=== PATIENT | female | born 1985 | race Two or more races ===

== ENCOUNTER 2024-05-04 09:58 | Emergency (ER) | payer MEDICAID, SELFPAY ==
[2024-05-04] VITALS (15 sets, daily range): BP systolic 115–155; BP diastolic 60–92; PULSE 91–108; RESP 16–26; TEMP 36.7–37.6; O2SAT 92–100; BMI 55.3
--- NOTE | 2024-05-04 10:32 | XR_ITS ---
EXAMINATION: XR chest 2V ORDERING PROVIDER: MELODIE Willson HISTORY: Chest Pain TECHNIQUE: Single portable AP radiograph of the chest. COMPARISON: 10/02/2023, chest radiographs. FINDINGS: Moderate cardiomegaly. Increased interstitial markings. No pneumothorax or pleural effusion. Similar atelectasis versus scarring left lateral upper lobe. Increased airspace opacities left lower lobe. Bones unchanged. IMPRESSION: Congestive heart failure pattern with increased interstitial markings in the left lung base which may represent superimposed infection in the proper clinical setting.
--- NOTE | 2024-05-04 10:32 | EKG_ITS ---
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
--- NOTE | 2024-05-04 10:32 | PD.EDRME ---
Rapid Medical Screening Exam RME Arrival date/time: 05/04/24 09:58 39-year-old female with a history of CHF presents to the emergency room with a chief complaint of shortness of breath, bilateral lower extremity swelling, chills, abdominal pain and distention x 2 days. I have greeted and performed a focused initial assessment of this patient. A comprehensive ED assessment and evaluation of the patient, analysis of all test results, and completion of the medical decision making process will be conducted by additional ED providers. Chief Complaint: Flu Like Symptoms Time Seen by Provider: 05/04/24 10:05 Vital signs reviewed by provider: Yes
--- NOTE | 2024-05-04 10:33 | XR_ITS ---
EXAMINATION: CT abdomen pelvis wo con ORDERING PROVIDER: MELODIE Willson HISTORY: abdominal pain TECHNIQUE: Without intravenous or oral contrast, CT was used in the volumetric, helical imaging acquisition of the abdomen and pelvis with 2-D and 3-D reformats generated on a separate workstation and submitted for interpretation. Institutional dose reducing protocols were utilized. Evaluation of hollow viscus and solid viscera is limited secondary to lack of intravenous and oral contrast. RADIATION DOSE: DLP 1562 mGy-cm COMPARISON: 11/12/2023, renal ultrasound. FINDINGS: LIVER: Nodular morphology. Diffuse decreased density. Midclavicular craniocaudad length 18.4 cm. BILIARY: Post cystectomy. PANCREAS: Fatty atrophy. SPLEEN: 16.8 cm in length. ADRENAL GLANDS: Unremarkable. KIDNEYS: Mild bilateral perinephric fat stranding. No hydronephrosis. No obstructive nephrolithiasis. URETERS: Unremarkable. BLADDER: Unremarkable. CT provides limited evaluation of the urinary bladder. HOLLOW VISCUS: Scattered colonic diverticula without surrounding inflammatory changes. Appendix nondilated. Bowel is not abnormally dilated. VASCULATURE: Two right renal veins. Some mildly prominent serpiginous vessels about the lateral liver, may represent developing varices. Trace ascites. Mild cardiomegaly. PELVIS: Small amount of free fluid. LYMPH NODES: Scattered prominent inguinal, periportal, and retroperitoneal lymph nodes, not pathologically enlarged imaging criteria. LUNG BASES: 3 mm nodular opacity about the minor fissure, probably in a intrafissural lymph node. Mild increase in interstitial markings. Mild dependent atelectasis. BONES: Mild to moderate bony degenerative changes, including moderate L4-L5 disc height loss and facet arthrosis. ABDOMINAL WALL: Anasarca. IMPRESSION: 1. Cirrhotic liver with sequelae of portal hypertension. 2. Volume overload versus third spacing.
[2024-05-04 11:10] LABS: Basophils % (Auto) 0 % (0-2.5); Eosinophils # (Auto) 0.2 Thou/mm3 (0.0-0.5); Eosinophils % (Auto) 3 % (0-10); Hematocrit 23.9 % (36.0-46.0); Immature Granulocytes % (Auto) 0 % (0-0); Immature Granulocytes Auto 0.03 Thou/mm3 (0.00-0.00); Lymphocytes % (Auto) 14 % (10-50); Mean Corpuscular Hemoglobin 22.2 pg (25.0-35.0); Mean Corpuscular Volume 79 fL (80-100); Monocytes # (Auto) 0.5 Thou/mm3 (0.0-0.8); Monocytes % (Auto) 7 % (0-12); Neutrophils # (Auto) 5.2 Thou/mm3 (1.8-7.7); Neutrophils % (Auto) 76 % (37-80); Nucleated Red Blood Cell % 0 /100 WBC (0); Platelet Count 86 Thou/mm3 (140-440); RDW Standard Deviation 54.4 fL (36.4-46.3); Red Blood Count 3.02 Miln/mm3 (4.00-5.20); White Blood Count 6.9 Thou/mm3 (3.6-11.0)
[2024-05-04 11:12] LABS: Hemoglobin 6.7 g/dL (12.0-16.0)
[2024-05-04 11:24] LABS: Alanine Aminotransferase 19 U/L (10-49); Albumin, Serum 3.8 gm/dL (3.5-5.0); Albumin/Globulin Ratio 1.4 (1.2-2.2); Alkaline Phosphatase 126 U/L (46-116); Anion Gap 2 (7-16); Aspartate Amino Transferase < 10 U/L (0-34); B-Type Natriuretic Peptide 74 pg/mL (0-100); BUN/Creatinine Ratio 13 Ratio (12-20); Bilirubin,Total 1.7 mg/dL (0.3-1.2); Blood Urea Nitrogen 8 mg/dL (9-23); Calcium 8.8 mg/dL (8.3-10.6); Carbon Dioxide 27.3 mMol/L (20.0-31.0); Chloride 109 mMol/L (98-107); Creatinine (Component) 0.6 mg/dL (0.6-1.3); Estimated Creatinine Clearance 179.6 mL/min (>60); Globulin 2.8 gm/dL (2.3-3.5); Glucose 118 mg/dL (74-106); LDH (Lactate Dehydrogenase) 234 U/L (120-246); Magnesium 1.8 mg/dL (1.6-2.6); Osmolality,Calculated 274 (275-295); Potassium 3.7 mMol/L (3.4-5.1); Sodium 138 mMol/L (136-145); Total Protein 6.6 gm/dL (5.7-8.2); Troponin I < 0.020 ng/mL (0.0-0.045); eGFR > 60 See Note
[2024-05-04 11:35] LABS: INR 1.1 (0.9-1.3); Partial Thromboplastin Time 24.9 Seconds (22.0-36.0); Prothrombin Time 12.3 Seconds (9.0-12.2)
--- NOTE | 2024-05-04 11:48 | PD.EDADULT ---
ED General RME/HPI General Chief complaint: Flu Like Symptoms Stated complaint: SEVERE HOARSENESS, CHILLS, BODY ACHES Time Seen by Provider: 05/04/24 10:05 Arrival date/time: 05/04/24 09:58 CC: Abdominal pain HPI every time she drinks alcohol the patient experience abdominal pain this has been going on for a long time . Patient admits to drinking alcohol to eat for years . Patient drinks 1 to 2 pints of vodka a day. Patient denies diarrhea black stool bloody stool nausea vomiting or diarrhea. Patient continues to have heavy menses and states that she is anemic. Currently the abdominal pain is a 2-3 on a 10 scale RME / HPI RME / HPI narrative: 05/04/24 09:58 39-year-old female with a history of CHF presents to the emergency room with a chief complaint of shortness of breath, bilateral lower extremity swelling, chills, abdominal pain and distention x 2 days. I have greeted and performed a focused initial assessment of this patient. A comprehensive ED assessment and evaluation of the patient, analysis of all test results, and completion of the medical decision making process will be conducted by additional ED providers. Related Data Previous Rx's ?Medication ?Instructions ?Recorded amoxicillin 875 mg-potassium 1 tab PO BID #20 tabs 12/18/21 clavulanate 125 mg tablet benzonatate 100 mg capsule 100 mg PO TID PRN cough #60 caps 12/18/21 budesonide 180 mcg/actuation 1 inh inhalation BID #1 ea 12/18/21 breath activated powder inhaler Allergies Allergy/AdvReac Type Severity Reaction Status Date / Time No Known Allergies Allergy Verified 05/04/24 10:04 Review of Systems Review of Systems Narrative Review of Systems: GEN: No fever, no chills, no weight loss EYES: No discharge, no visual changes, no pain HEENT: No ear pain, no congestion, no sore throat PULM: No shortness of breath, no cough, no congestion CV: No chest pain, no dyspnea on exertion, no palpitations GI: No nausea, no vomiting, no diarrhea, + pain, no constipation : No frequency, no urgency, no dysuria MUSC/SKEL: No joint pain, no back pain SKIN: No rash PSYCH: No hallucinations, no depression HEME/LYMPH: No easy bleeding or bruising tendencies NEURO: No weakness, no headache Past Medical History Past Medical History CARDIAC: Positive Angina, Edema and Hypertension; Negative Cardiac Disorders, Hypercholesterolemia, Aneurysm or Congestive Heart Failure RESPIRATORY: Negative Chronic Obstructive Pulmonary Disease (COPD) GASTROINTESTINAL: Positive Gall Bladder Disease and Obesity; Negative Gastrointestinal Disorders or Hepatitis GENITOURINARY: Negative Renal Disease REPRODUCTIVE: Negative Breast Cancer ENDOCRINE: Negative Diabetes Mellitus Type 1 or Diabetes Mellitus Type 2 HEMATOLOGIC: Positive Anemia PSYCHO/SOCIAL: Positive Depression and Anxiety OTHER HISTORY: Positive Chicken Pox; Negative Anesthesia Reactions, MRSA, Human Immunodeficiency Virus (HIV), Measles, Mumps, Rubella ([place] Measles), Pertussis, Clostridium Difficile or Breast Cancer Family History FAMILY HISTORY: Positive Family Cancer Social History SMOKING STATUS: Current every day smoker ED Exam Narrative Physical exam: [General: Morbidly obese not in any acute distress Head normocephalic HEENT: Within acceptable limits Neck is supple nontender Chest equal chest rise nontender to palpation Respiratory: Clear to auscultation no wheezes crackles or rubs CV: Rate rhythm is regular no murmurs rubs or clicks Abdomen is grossly distended secondary to body habitus soft nontender no masses positive bowel sounds all 4 quadrants Back: No CVA tenderness no spinous process tenderness from cervical spine thoracic and lumbar spine Skin: Intact no petechiae rash induration ulceration or crepitus Extremities: Moving all extremity against resistance cap refill less than 2 seconds neurosensory intact. Bilateral lower extremity edema Neuro: Awake alert oriented x3 Glascow coma 15 no focal deficits] Course Quality Measures none Orders Category Date Time Status EKG (ED ONLY) *Do not use* NOW Care 05/04/24 10:32 Completed Melissa [Urinary Catheter] QS Care 05/04/24 17:22 Completed Insert IV NOW Care 05/04/24 11:57 Completed Transfuse,blood/blood products NOW Care 05/04/24 11:[address] abdomen pelvis wo con Stat Exams 05/04/24 10:33 Completed EKG (ED Only) Stat Exams 05/04/24 10:32 Draft XR chest 2V Stat Exams 05/04/24 10:32 Completed Alcohol, Blood Medical Stat Lab 05/04/24 11:55 Completed B-Type Natriuretic Peptide Stat Lab 05/04/24 10:57 Completed CBC Stat Lab 05/04/24 10:57 Completed Comprehensive Metabolic Panel Stat Lab 05/04/24 10:57 Completed Drug Screen,Urine Stat Lab 05/04/24 17:41 Completed HCG Qualitative,Urine Stat Lab 05/04/24 17:41 Completed HCG,Qualitative Serum Stat Lab 05/04/24 11:55 Completed LDH (Lactate Dehydrogenase) Stat Lab 05/04/24 10:57 Completed Lipase Stat Lab 05/04/24 11:55 Completed Magnesium Stat Lab 05/04/24 10:57 Completed Partial Thromboplastin Time Stat Lab 05/04/24 10:57 Completed Path Review Blood Smear Stat Lab 05/04/24 10:57 Completed Prothrombin Time with INR Stat Lab 05/04/24 10:57 Completed Troponin I Stat Lab 05/04/24 10:57 Completed Type and Screen Stat Lab 05/04/24 11:55 Completed Urinalysis Stat Lab 05/04/24 17:41 Completed prbc [Red Blood Cells] Stat Lab 05/04/24 11:55 Completed Folic Acid Inj Med 05/04/24 12:02 Discontinued 1 mg IVP X1 ONE Furosemide [Lasix Inj] Med 05/04/24 16:28 Discontinued 20 mg IVP X1 ONE Thiamine [Vitamin B-1] Med 05/04/24 12:02 Discontinued 100 mg PO X1 ONE Vital Signs Vital signs: Vital Signs Temperature 99.0 F 05/04/24 10:32 Pulse Rate 108 H 05/04/24 10:32 Respiratory Rate 26 H 05/04/24 10:32 Blood Pressure 154/72 H 05/04/24 10:32 Pulse Oximetry (%) 95 05/04/24 10:32 Oxygen Delivery Method Room Air 05/04/24 10:32 [facility] Patient data External records reviewed:: [facility] previous records Clinical information provided by:: patient Social determinants that could affect healthcare access:: none Patient has the following chronic illnesses:: Obesity alcoholism How is presenting disease/condition affected by chronic disease/condition?: exacerbated by Evaluation data The following diagnostics were reviewed and interpreted by me:: lab results and radiology exam(s) Lab and/or radiology exams considered but not ordered:: CBC shows no leukocytosis anemia of 6.7 and 23.9 respectively with a platelet count of 86 Coags show PT of 12.3 no other gross abnormalities CMP shows sodium 138 potassium 3.7 chloride of 109 carbon oxide 27.3 gap of 2 BUN of 8 creatinine of 0.6. Glucose of 118 Total bilirubin of 1.7 AST of less than 10 ALT of 19 alk phos of 126 LDH of 234 Troponin of is within acceptable limits BMP is within acceptable limits. EKG performed at 1036 is a ventricular of 95. Of 133 QRS of 78 QTc of 385 is normal sinus rhythm. Interpretation Summary: Anemia abdominal pain alcoholism Medications Medications considered but not ordered:: None Medication administrations:: Medication Administration History Discontinued Medications Folic Acid (Folic Acid Inj 1 Mg/0.2 Ml) 1 mg IVP X1 ONE Stop: 05/04/24 12:03 Last Admin: 05/04/24 12:15 Dose: 1 mg Documented By: BD Furosemide (Furosemide Inj 10 Mg/Ml Vial 2 Ml) 20 mg IVP X1 ONE Stop: 05/04/24 16:29 Last Admin: 05/04/24 16:32 Dose: 20 mg Documented By: BD Thiamine HCl (Thiamine 100 Mg Tablet) 100 mg PO X1 ONE Stop: 05/04/24 12:03 Last Admin: 05/04/24 12:13 Dose: 100 mg Documented By: BD None Consultations Consultation(s) initiated? (list below): No Diagnosis Differential Diagnosis ED Complaint MDM: Anemia abdominal pain alcoholism Most likely diagnosis given after review of the tests above:: Anemia abdominal pain alcoholism Admission Indicated Admission indicated?: not indicated Explain why admission is indicated or not indicated:: Stable for outpatient follow-up Admission Request Was there a request for admission?: No Disposition Plan Disposition Plan: Discharge Discharge Attestation Discharge Attestation: The patient and all family members were given an opportunity to ask questions and understood the discharge instructions. Discharge instructions specifically effects, indications for sooner follow up or return to the emergency department, and the expected course of current diagnosis. Patient condition: Stable Medical Decision Making Differential Diagnosis Differential Diagnosis: Anemia abdominal pain alcoholism Lab Data 05/04/24 10:57 05/04/24 10:57 Labs: Lab Results 05/04/24 05/04/24 05/04/24 Range/Units 10:57 11:55 17:41 WBC 6.9 (3.6-11.0) Thou/mm3 RBC 3.02 L (4.00-5.20) Miln/mm3 Hgb 6.7 L* (12.0-16.0) g/dL Hct 23.9 L (36.0-46.0) % MCV 79 L (80-100) fL MCH 22.2 L (25.0-35.0) pg MCHC 28.0 L (31.0-37.0) g/dl RDW Std Deviation 54.4 H (36.4-46.3) fL Plt Count 86 L (140-440) Thou/mm3 Neut % (Auto) 76 (37-80) % Lymph % (Auto) 14 (10-50) % [place] % (Auto) 7 (0-12) % Eos % (Auto) 3 (0-10) % Baso % (Auto) 0 (0-2.5) % Neut # (Auto) 5.2 (1.8-7.7) Thou/mm3 Lymph # (Auto) 1.0 (1.0-4.8) Thou/mm3 [place] # (Auto) 0.5 (0.0-0.8) Thou/mm3 Eos # (Auto) 0.2 (0.0-0.5) Thou/mm3 Baso # (Auto) 0.0 (0.0-0.2) Thou/mm3 Immature Gran # (Auto) 0.03 H (0.00-0.00) Thou/mm3 Absolute Nucleated RBC 0.00 (0.00-0.00) Thou/mm3 Immature Gran % 0 (0-0) % Nucleated RBC % 0 (0) /100 WBC Smear Path Review Sent to Pathologist PT 12.3 H (9.0-12.2) Seconds INR 1.1 (0.9-1.3) APTT 24.9 (22.0-36.0) Seconds Sodium 138 (136-145) mMol/L Potassium 3.7 (3.4-5.1) mMol/L Chloride 109 H (98-107) mMol/L Carbon Dioxide 27.3 (20.0-31.0) mMol/L Anion Gap 2 L (7-16) BUN 8 L (9-23) mg/dL Creatinine 0.6 (0.6-1.3) mg/dL Estim Creat Clear Calc 179.6 (>60) mL/min eGFR > 60 (60 - ) See Note BUN/Creatinine Ratio 13 (12-20) Ratio Glucose 118 H (74-106) mg/dL Calculated Osmolality 274 L (275-295) Calcium 8.8 (8.3-10.6) mg/dL Corrected Calcium 9.0 (8.5-10.1) mg/dL Magnesium 1.8 (1.6-2.6) mg/dL Total Bilirubin 1.7 H (0.3-1.2) mg/dL AST < 10 (0-34) U/L ALT 19 (10-49) U/L Alkaline Phosphatase 126 H (46-116) U/L Lactate Dehydrogenase 234 (120-246) U/L Troponin I < 0.020 (0.0-0.045) ng/mL B-Natriuretic Peptide 74 (0-100) pg/mL Total Protein 6.6 (5.7-8.2) gm/dL Albumin 3.8 (3.5-5.0) gm/dL Globulin 2.8 (2.3-3.5) gm/dL Albumin/Globulin Ratio 1.4 (1.2-2.2) Lipase 30 (12-53) U/L HCG, Qual Negative Ur Collection Type Clean Catch Urine Color Colorless A (Lt Yel-Yel) Urine Clarity Clear (Clear/Hazy) Urine pH 6.0 (5.0-7.0) Ur Specific [place] 1.008 (1.001-1.035) Urine Protein Negative (Neg - Trace) Urine Glucose (UA) Negative (Negative) Urine Ketones Negative (Negative) Urine Blood Negative (Negative) Urine Nitrite Negative (Negative) Urine Bilirubin Negative (Negative) Urine Urobilinogen (Auto) Negative (0.0-1.0) mg/dL Ur Leukocyte Esterase Negative (Negative) Urine RBC < 1 (0-3) /hpf Urine WBC < 1 (0-5) /hpf Ur Squamous Epith Cells 0 (0-5) /hpf Urine Bacteria None (None) Urine HCG, Qual Negative Urine Opiates Screen Negative (Negative) Urine Fentanyl Screen Negative (Negative) Ur Barbiturates Screen Negative (Negative) U Amphetamin/Meth Scrn Positive A (Negative) U Benzodiazepines Scrn Negative (Negative) U Cocaine Metab Screen Negative (Negative) U Marijuana (THC) Screen Negative (Negative) Ethyl Alcohol < 3.0 (0-10.0) mg/dL Blood Type O Positive Antibody Screen NEGATIVE Crossmatch See Detail Blood Bank Wristband ID Yes Discharge Plan Plan Patient Disposition: HOME (Self Care) Patient condition on transfer: Stable Prescriptions/Referrals Prescriptions/Med Rec: No Action amoxicillin-pot clavulanate 875-125 mg tablet 1 tab PO BID Qty: 20 0RF benzonatate 100 mg capsule 100 mg PO TID PRN (Reason: cough) Qty: 60 0RF budesonide 180 mcg/actuation aerosol powdr breath activated 1 inh inhalation BID Qty: 1 0RF Referrals: Koehler (ARIACHL),Sherin, GASOLINE LOCOMOTIVE CRANE OPERATOR [Primary Care Provider] - In 1 week Problem List Clinical Impression: Anemia, Abdominal pain, Morbid obesity Patient/Caregiver Discharge Instructions Education Materials: Abdominal Pain, Understanding Body Mass Index (BMI), Weight Manage Take Off Keep Off Print Language: Upper Sorbian Stand Alone Forms: Adriana Award Info., Work/School Release, Patient Portal Info Letter PA/GASOLINE LOCOMOTIVE CRANE OPERATOR Supervising Physician PA/GASOLINE LOCOMOTIVE CRANE OPERATOR Supervising Physician: Jake Zimmerman ENP
[2024-05-04 12:01] LABS: Path Review Blood Smear Sent to Pathologist
[2024-05-04] MEDS: THIAMINE 100 MG TABLET PO (12:13)
[2024-05-04] MEDS: FOLIC ACID INJ 1 MG/0.2 ML IVP (12:15)
[2024-05-04 12:28] LABS: Alcohol, Blood Medical < 3.0 mg/dL (0-10.0); Lipase 30 U/L (12-53)
--- NOTE | 2024-05-04 12:38 | PC.NURSE ---
PT CAME FROM LOBBY HERE FOR ABD PAIN, PT HAS A HX OF ALCOHOL ABUSE, STATES LAST TIME SHE DRANK WAS LAST NIGHT PT NEEDS BLOOD TRANSFUSION, DATA RECOVERY PLANNER ENRIQUEZ AWARE OF PT ALCOHOL USE AND LAST TIME THAT SHE DRANK. PT IS IN ROOM WITH SISTER AT BEDSIDE.
[2024-05-04 13:51] LABS: HCG,Qualitative Serum Negative
[2024-05-04] MEDS: FUROSEMIDE INJ 10 MG/ML VIAL 2 ML 20 MG IVP (16:32)
[2024-05-04 18:02] LABS: Collection Type, Urine Clean Catch; Squamous Epithelial Cell,Urine 0 /hpf (0-5)
[2024-05-04 18:07] LABS: Bilirubin,Urine Negative (Negative); Blood,Urine Negative (Negative); Clarity,Urine Clear (Clear/Hazy); Color,Urine Colorless (Lt Yel-Yel); Glucose, Urine Negative (Negative); Ketones,Urine Negative (Negative); Leukocyte Esterase,Urine Negative (Negative); Nitrite,Urine Negative (Negative); Protein,Urine Negative (Neg - Trace); RBC,Urine < 1 /hpf (0-3); Specific Gravity,Urine 1.008 (1.001-1.035); Urobilinogen,Urine Negative mg/dL (0.0-1.0); WBC,Urine < 1 /hpf (0-5)
[2024-05-04 18:12] LABS: HCG Qualitative,Urine Negative
[2024-05-04 18:31] LABS: Amphetamine/Methamp Scrn,U Positive (Negative); Barbiturate Screen,Urine Negative (Negative); Benzodiazepines Screen,Urine Negative (Negative); Benzoylecgonine Screen, Ur Negative (Negative); Fentanyl Screen,Urine Negative (Negative); Opiate Screen,Urine Negative (Negative); THC Screen,Urine Negative (Negative)
== END 2024-05-04 20:34 | disposition home or self-care (01) ==
PROVIDERS: Nurse Practitioner Family; Registered Nurse General Practice; Emergency Provider Emergency Medicine; PCP Nurse Practitioner Primary Care
DX: D64.9 Anemia, unspecified (principal); R10.9 Unspecified abdominal pain; E66.01 Morbid (severe) obesity due to excess calories; Z68.43 Body mass index [BMI] 50.0-59.9, adult; I50.9 Heart failure, unspecified
CPT/HCPCS: 51702; 36415; 36430; 71046; 74176; 80053; 80307; 80320; 81001; 81025; 83615; 83690; 83735; 83880; 84484; 84703; 85025; 85610; 85730; 86850; 86900; 86901; 86923; 93005; 96374; 96375; 99285; J1940; J3490; P9016; A9270; G0480

== ENCOUNTER → 2024-05-12 | Outpatient (CLI) | payer MEDICAID, SELFPAY ==
--- NOTE | 2024-05-12 | XR_ITS ---
Examination: PA lateral chest 2 views TECHNIQUE: Upright PA lateral chest 2 views Exam date and time: May 12, 2024 1225 hours Comparison May 04, 2024 INDICATIONS: Shortness of breath one month FINDINGS: Moderate vascular congestion. Normal heart size No lobar pneumonia or andressa pulmonary edema Linear scarring in the left upper lobe IMPRESSION: Moderate vascular congestion
== END | disposition home or self-care (01) ==
LOC: CDIM 11:39
PROVIDERS: PCP Nurse Practitioner Primary Care; Referring Provider Nurse Practitioner; Visit Provider Nurse Practitioner
DX: R09.89 Other specified symptoms and signs involving the circulatory and respiratory systems (principal)
CPT/HCPCS: 71046

== ENCOUNTER 2025-02-14 15:29 | Emergency (ER) | payer MEDICAID, SELFPAY ==
[2025-02-14] VITALS (10 sets, daily range): BP systolic 124–157; BP diastolic 60–100; PULSE 85–97; RESP 18–20; TEMP 36.7–37.1; O2SAT 96–100; BMI 49.6
--- NOTE | 2025-02-14 16:40 | PD.EDRME ---
Rapid Medical Screening Exam RME Arrival date/time: 02/14/25 15:29 40-year-old female with no known medical history was sent to the emergency room by her primary care provider for low hemoglobin level 5.5. I have greeted and performed a focused initial assessment of this patient. A comprehensive ED assessment and evaluation of the patient, analysis of all test results, and completion of the medical decision making process will be conducted by additional ED providers. Chief Complaint: General Adult/Misc Complain Time Seen by Provider: 02/14/25 16:07 Vital signs: Vital Signs Temperature 98.3 F 02/14/25 16:36 Pulse Rate 95 02/14/25 16:36 Respiratory Rate 20 02/14/25 16:36 Blood Pressure 157/73 H 02/14/25 16:36 Pulse Oximetry (%) 97 02/14/25 16:36 Oxygen Delivery Method Room Air 02/14/25 16:36 Vital signs reviewed by provider: Yes Exam: Strong and regular rhythm Clear bilateral lung sounds Clinical Impression: Anemia/GI bleed
[2025-02-14 17:39] LABS: Basophils # (Auto) 0.0 Thou/mm3 (0.0-0.2); Basophils % (Auto) 1 % (0-2.5); Eosinophils # (Auto) 0.2 Thou/mm3 (0.0-0.5); Eosinophils % (Auto) 5 % (0-10); Hematocrit 22.8 % (36.0-46.0); Immature Granulocytes Auto 0.01 Thou/mm3 (0.00-0.00); Lymphocytes # (Auto) 1.0 Thou/mm3 (1.0-4.8); Lymphocytes % (Auto) 23 % (10-50); Mean Corpuscular HGB Conc 26.8 g/dl (31.0-37.0); Mean Corpuscular Hemoglobin 21.8 pg (25.0-35.0); Mean Corpuscular Volume 81 fL (80-100); Monocytes # (Auto) 0.4 Thou/mm3 (0.0-0.8); Monocytes % (Auto) 9 % (0-12); Neutrophils # (Auto) 2.5 Thou/mm3 (1.8-7.7); Neutrophils % (Auto) 62 % (37-80); Nucleated Red Blood Cell # 0.00 Thou/mm3 (0.00-0.00); Nucleated Red Blood Cell % 0 /100 WBC (0); Platelet Count 103 Thou/mm3 (140-440); RDW Standard Deviation 59.8 fL (36.4-46.3); Red Blood Count 2.80 Miln/mm3 (4.00-5.20); White Blood Count 4.1 Thou/mm3 (3.6-11.0)
[2025-02-14 17:48] LABS: INR 1.1 (0.9-1.3); Partial Thromboplastin Time 23.7 Seconds (22.0-36.0); Prothrombin Time 11.3 Seconds (9.0-12.2)
[2025-02-14 17:50] LABS: Hemoglobin 6.1 g/dL (12.0-16.0)
[2025-02-14 17:55] LABS: Alanine Aminotransferase 17 U/L (10-49); Albumin, Serum 3.9 gm/dL (3.5-5.0); Albumin/Globulin Ratio 1.3 (1.2-2.2); Alkaline Phosphatase 112 U/L (46-116); Anion Gap 9 (7-16); Aspartate Amino Transferase 26 U/L (0-34); BUN/Creatinine Ratio 13 Ratio (12-20); Bilirubin,Total 1.2 mg/dL (0.3-1.2); Blood Urea Nitrogen 8 mg/dL (9-23); Calcium 8.4 mg/dL (8.3-10.6); Calcium (Corrected) 8.5 mg/dL (8.5-10.1); Carbon Dioxide 25.4 mMol/L (20.0-31.0); Chloride 111 mMol/L (98-107); Creatinine (Component) 0.6 mg/dL (0.6-1.3); Estimated Creatinine Clearance 177.9 mL/min (>60); Globulin 2.9 gm/dL (2.3-3.5); Glucose 112 mg/dL (74-106); Osmolality,Calculated 288 (275-295); Potassium 4.0 mMol/L (3.4-5.1); Sodium 145 mMol/L (136-145); Total Protein 6.8 gm/dL (5.7-8.2); eGFR > 60 See Note
[2025-02-14 18:26] LABS: Path Review Blood Smear Sent to Pathologist
--- NOTE | 2025-02-14 18:40 | PD.EDRECHK ---
ED Recheck Abnl Lab Rx-RME/HPI General Chief Complaint: Recheck/Abnormal Lab/Rx Stated Complaint: LOW IRON, SOB Time Seen by Provider: 02/14/25 16:07 Arrival date/time: 02/14/25 15:29 RME / HPI RME / HPI narrative: 02/14/25 15:29 40-year-old female with no known medical history was sent to the emergency room by her primary care provider for low hemoglobin level 5.5. I have greeted and performed a focused initial assessment of this patient. A comprehensive ED assessment and evaluation of the patient, analysis of all test results, and completion of the medical decision making process will be conducted by additional ED providers. See MDM for Dr. Norman's HPI documentation. Related Data Previous Rx's ?Medication ?Instructions ?Recorded amoxicillin 875 mg-potassium 1 tab PO BID #20 tabs 12/18/21 clavulanate 125 mg tablet benzonatate 100 mg capsule 100 mg PO TID PRN cough #60 caps 12/18/21 budesonide 180 mcg/actuation 1 inh inhalation BID #1 ea 12/18/21 breath activated powder inhaler Allergies Allergy/AdvReac Type Severity Reaction Status Date / Time No Known Allergies Allergy Verified 05/04/24 10:04 Review of Systems Review of Systems Systems Reviewed: All systems reviewed, normal except as documented Past Medical History Past Medical History CARDIAC: Positive Angina, Heart Murmur, Edema and Hypertension; Negative Cardiac Disorders, Hypercholesterolemia, Aneurysm or Congestive Heart Failure RESPIRATORY: Negative Chronic Obstructive Pulmonary Disease (COPD) GASTROINTESTINAL: Positive Gall Bladder Disease and Obesity; Negative Gastrointestinal Disorders or Hepatitis GENITOURINARY: Negative Renal Disease REPRODUCTIVE: Negative Breast Cancer ENDOCRINE: Negative Diabetes Mellitus Type 1 or Diabetes Mellitus Type 2 HEMATOLOGIC: Positive Anemia PSYCHO/SOCIAL: Positive Depression and Anxiety OTHER HISTORY: Positive Chicken Pox; Negative Anesthesia Reactions, MRSA, Human Immunodeficiency Virus (HIV), Measles, Mumps, Rubella (Thai Measles), Pertussis, Clostridium Difficile or Breast Cancer Family History FAMILY HISTORY: Positive Family Cancer Social History SMOKING STATUS: Current every day smoker ED Exam Narrative Physical exam: See MDM for Dr. Norman's physical exam documentation. Course Quality Measures none Orders Category Date Time Status Transfuse,blood/blood products NOW Care 02/14/25 18:34 Completed CBC Stat Lab 02/14/25 16:50 Completed CMP [Comprehensive Metabolic Panel] Stat Lab 02/14/25 16:50 Completed HH POST [Hgb and Hct Post-Transfusion] Stat Lab 02/15/25 02:10 Completed PT [Prothrombin Time with INR] Stat Lab 02/14/25 16:50 Completed PTT [Partial Thromboplastin Time] Stat Lab 02/14/25 16:50 Completed Path Review Blood Smear Stat Lab 02/14/25 16:50 Completed Type and Screen Stat Lab 02/14/25 16:50 Completed prbc [Red Blood Cells] Stat Lab 02/14/25 16:50 Completed Vital Signs Vital signs: Vital Signs Temperature 98.3 F 02/14/25 16:36 Pulse Rate 95 02/14/25 16:36 Respiratory Rate 20 02/14/25 16:36 Blood Pressure 157/73 H 02/14/25 16:36 Pulse Oximetry (%) 97 02/14/25 16:36 Oxygen Delivery Method Room Air 02/14/25 16:36 Recheck / Abnormal Lab / Rx MDM Narrative MDM Narrative:: This section includes all my notes and documentations, including HPI, PE, and ED course. Hector Norman MD HPI: 40-year-old female here after being sent over by her PCP due to having low hemoglobin. She reports malaise and fatigue. No chest pain. No other complaints. ROS: All negative except as documented in HPI. Physical Exam: General: Alert and oriented. No acute distress when remaining still. Eyes: Conjunctivae and lids clear. ENT: No nasal congestion. Neck: Supple. Heart: RRR. Lungs: No respiratory distress. Good air movement. No rhonchi, wheezing, rales. Abdomen: Soft and nontender. Normal bowel sounds. No distension. No rebound or guarding. Back: No CVA tenderness. Skin: Warm and dry. Neuro: Alert and oriented X 3. I reviewed all diagnostic test results. Blood tests remarkable for Hgb 6.1. At this point, diagnoses include: Severe anemia Treatment here included: Two units of pRBC She felt much better. Recommended continued outpatient investigations. Based on my best medical judgment, made decision no further evaluation or treatment indicated at this time. Patient understands and agrees to the discharge instructions customized and printed, see below. Discharge Instructions from Dr. Norman printed for you: 1. For your severe anemia, you were treated with 2 units of blood transfusion. 2. Your body needs iron to make red blood cells. So increase food rich in iron. Such as red meat and egg yolks and seaweed. 3. See your private doctor on 02/16/2025 for recheck. Ask for help finding the cause/treatment of your severe anemia episodes. Including referrals to specialists, such as commercial director (blood specialist) and central supply technician. 4. Seek immediate medical care with worsening or with any concerns. Hector Norman MD Patient data External records reviewed:: [facility] previous records (Per chart review, patient was seen here on 05/04/24 for abdominal pain.) Clinical information provided by:: patient Social determinants that could affect healthcare access:: none Patient has the following chronic illnesses:: HTN How is presenting disease/condition affected by chronic disease/condition?: uneffected by Evaluation data The following diagnostics were reviewed and interpreted by me:: lab results Lab and/or radiology exams considered but not ordered:: none Interpretation Summary: I reviewed all diagnostic test results. Blood tests remarkable for Hgb 6.1. Medications / Prescriptions Medications or Prescriptions considered but not ordered:: none Medication administrations:: Two units of pRBC. Consultations Consultation(s) initiated? (list below): No Diagnosis Recheck Differential Diagnosis: other (Severe anemia) Most likely diagnosis given after review of the tests above:: Severe anemia Admission Indicated Admission indicated?: not indicated Explain why admission is indicated or not indicated:: With significant improvement and no condition needing emergent intervention, there was no indication for admission. Admission Request Was there a request for admission?: No Disposition Plan Disposition Plan: Discharge Discharge Attestation Discharge Attestation: The patient and all family members were given an opportunity to ask questions and understood the discharge instructions. Discharge instructions specifically effects, indications for sooner follow up or return to the emergency department, and the expected course of current diagnosis. Patient condition: Stable Discharge Plan Plan Patient Disposition: HOME (Self Care) Prescriptions/Referrals Prescriptions/Med Rec: No Action amoxicillin-pot clavulanate 875-125 mg tablet 1 tab PO BID Qty: 20 0RF benzonatate 100 mg capsule 100 mg PO TID PRN (Reason: cough) Qty: 60 0RF budesonide 180 mcg/actuation aerosol powdr breath activated 1 inh inhalation BID Qty: 1 0RF Referrals: Rodo (CANDACE)Sherin FNP [Primary Care Provider] - In 1 week Problem List Clinical Impression: Severe anemia Patient/Caregiver Discharge Instructions Discharge Activity: activity as tolerated Education Materials: ED Anemia Type Not Specified Additional Instructions: Discharge Instructions from Dr. Norman printed for you: 1. For your severe anemia, you were treated with 2 units of blood transfusion. 2. Your body needs iron to make red blood cells. So increase food rich in iron. Such as red meat and egg yolks and seaweed. 3. See your private doctor on 02/16/2025 for recheck. Ask for help finding the cause/treatment of your severe anemia episodes. Including referrals to specialists, such as commercial director (blood specialist) and central supply technician. 4. Seek immediate medical care with worsening or with any concerns. Print Language: Scottish Stand Alone Forms: Adriana Award Info., Patient Portal Info Letter
[2025-02-15 00:11] VITALS: BP 132/59; PULSE 96; RESP 16; TEMP 36.9; O2SAT 99
[2025-02-15 02:23] VITALS: BP 129/69; PULSE 90; RESP 18; TEMP 37.2; O2SAT 98
[2025-02-15 02:24] VITALS: BP 129/69; PULSE 90; RESP 18; TEMP 37.2; O2SAT 98
[2025-02-15 02:27] LABS: Hematocrit 26.1 % (36.0-46.0)
[2025-02-15 03:05] LABS: Hemoglobin 7.3 g/dL (12.0-16.0)
== END 2025-02-15 02:43 | disposition home or self-care (01) ==
PROVIDERS: Nurse Practitioner Family; Emergency Provider Emergency Medicine; PCP Nurse Practitioner Primary Care
DX: D64.9 Anemia, unspecified (principal)
CPT/HCPCS: 36415; 36430; 80053; 85014; 85018; 85025; 85610; 85730; 86850; 86900; 86901; 86923; 99283; P9016

== ENCOUNTER → 2025-02-21 | Outpatient (CLI) | payer MEDICAID, SELFPAY ==
--- NOTE | 2025-02-21 16:17 | XR_ITS ---
Study: 2 view chest radiograph. INDICATION: Congestive failure. Shortness of breath. TECHNIQUE: PA and lateral upright chest radiographs at 1624 hours 21 February 2025 Left findings: The lungs are fully expanded and free from alveolar infiltrates or nodules. There are no effusions. The heart is normal in size. Left atrial appendage is prominent and partially obscures the left hilum. Superior mediastinal structures are narrow and peripheral vessels are normal in distribution. Impression: 1. No acute diagnostic abnormality. 2. Left atrial appendage prominence.
== END | disposition home or self-care (01) ==
LOC: CDIM 16:10
PROVIDERS: PCP Nurse Practitioner Primary Care; Referring Provider Nurse Practitioner Primary Care; Visit Provider Nurse Practitioner Primary Care
DX: I49.8 Other specified cardiac arrhythmias (principal)
CPT/HCPCS: 71046